=== PATIENT | female | born 1930 | race Caucasian/White ===

== ENCOUNTER 2017-08-27 19:13 | Inpatient (IN) | payer OTHER ==
[~2017-08-27] VITALS: Ht 167.6 cm; Wt 70.0 kg
[~2017-08-27 19:13] MED LIST: ADULT LOW DOSE81 M1 PO; ATIVAN0.5 MG PO; CALCIUM 600 +1 EAC1; CALCIUM 600 +1 EAC1 PO; CITRACAL + D C1 EACH PO; DALMANE15 MG PO; LISINOPRIL5 MG PO; LO-DOSE ASPIRIN81 M1 PO; SIMVASTATIN10 MG PO; TYLENOL REGULA325 MG PO; VITAMIN D1000 INTUN PO
[2017-08-27 19:59] LABS: HEMATOCRIT 36.7 % (36.0-46.0); MCH 30.5 PG (29.0-34.0); MCHC 32.2 G/DL (30.0-36.0); MCV 94.8 FL (83-99); MEAN PLAT.VOLUME 9.3 uM^3 (9.5-12.4); PLATELET COUNT 231 K/uL (156-360); RBC DIS.WIDTH-CV 13.1 % (11.8-14.6); RBC DIS.WIDTH-SD 45.1 % (39-53); RED BLOOD COUNT 3.87 M/uL (3.80-5.20); WHITE BLOOD COUNT 11.4 K/uL (4.1-10.2)
[2017-08-27 20:06] LABS: PROTHROMBIN TIME 11.2 SEC (10.2-12.9)
[2017-08-27 20:07] LABS: CHLORIDE 107 mEq/L (99-109); POTASSIUM 4.3 mEq/L (3.7-5.4); SODIUM 144 mEq/L (136-147)
[2017-08-27 20:09] LABS: GLUCOSE 113 mg/dL (70-99); PTT 28.3 SEC (25-37)
[2017-08-27 20:10] LABS: ANION GAP 10 MEQ/L (2-14)
[2017-08-27 20:12] LABS: GFR ESTIMATE (CALCULATED) 50 mL/min/
[2017-08-27 20:13] LABS: UREA NITROGEN (BUN) 18 mg/dL (9-23)
[2017-08-27] MEDS ORDERED: DALMANE15 MG PO (21:44)
[2017-08-27] MEDS ORDERED: VITAMIN D31000 UNI2 PO (21:44)
[2017-08-27] MEDS ORDERED: ASCORBIC ACID500 M3 PO (21:47)
[2017-08-28 01:59] VITALS: BP 135/70
[2017-08-28 08:14] VITALS: BP 110/55
[2017-08-28 12:05] VITALS: BP 115/55
[2017-08-28 16:18] LABS: HEMATOCRIT 27.8 % (36.0-46.0); MCH 30.4 PG (29.0-34.0); MCHC 30.9 G/DL (30.0-36.0); MCV 98.2 FL (83-99); RBC DIS.WIDTH-CV 13.2 % (11.8-14.6); WHITE BLOOD COUNT 7.7 K/uL (4.1-10.2)
[2017-08-28 16:25] LABS: RED BLOOD COUNT 2.83 M/uL (3.80-5.20)
[2017-08-28 16:38] LABS: PLATELET CLUMPS PRESENT - PLATELET COUNT APPEARS ADQ.; PLATELET COUNT UNABLE TO REPORT K/uL (156-360)
[2017-08-28 19:16] VITALS: BP 120/56
[2017-08-29] VITALS (16 sets, daily range): BP systolic 97–148; BP diastolic 55–68
[2017-08-29 07:07] LABS: HEMATOCRIT 24.3 % (36.0-46.0); MCV 98.8 FL (83-99)
[2017-08-30 06:15] LABS: HEMATOCRIT 30.5 % (36.0-46.0)
[2017-08-30 08:14] VITALS: BP 120/58
[2017-08-30] MEDS ORDERED: HYDROCODON-ACE1 EAC7 PO (10:58)
[2017-08-30] MEDS ORDERED: LOVENOX40 MG/0.4 SC (10:58)
[2017-08-30 11:02] LABS: ANION GAP 4 MEQ/L (2-14); CHLORIDE 104 MEQ/L (99-109); GFR ESTIMATE (CALCULATED) > 59 mL/min/; GLUCOSE 109 mg/dL (70-99); POTASSIUM 3.9 MEQ/L (3.7-5.4); SAMPLE HEMOLYSIS CHECK 0; SAMPLE ICTERIC CHECK 0; SAMPLE LIPEMIA CHECK 0; SODIUM 137 MEQ/L (136-147); UREA NITROGEN (BUN) 14 mg/dL (9-23)
[2017-08-30 15:54] VITALS: BP 101/57
[2017-08-31] VITALS: BP 124/65
[2017-08-31 06:31] LABS: HEMATOCRIT 31.2 % (36.0-46.0); MCV 90.2 FL (83-99)
[2017-08-31 07:27] VITALS: BP 115/61
[2017-08-31 15:05] VITALS: BP 132/67
== END 2017-08-31 18:20 | DRG 481 ==
LOC: EME → EDBD 19:13 → EDOF 08-28 00:05 → 3EAST 08-28 00:05 → ENRESERV 08-28 00:36 → 3EAST 08-28 01:26
PROVIDERS: Emergency Medicine; Orthopaedic Surgery; Physician Assistant
PROC: 0QS636Z Reposition Right Upper Femur with Intramedullary Internal Fixation Device, Percutaneous Approach (ICD-10-PCS; principal; 2017-08-28)
PROC: 30233N1 Transfusion of Nonautologous Red Blood Cells into Peripheral Vein, Percutaneous Approach (ICD-10-PCS; 2017-08-29)
DX: S72.141A Displaced intertrochanteric fracture of right femur, initial encounter for closed fracture (principal); D62 Acute posthemorrhagic anemia; I10 Essential (primary) hypertension; E78.00 Pure hypercholesterolemia, unspecified; F41.9 Anxiety disorder, unspecified; W01.0XXA Fall on same level from slipping, tripping and stumbling without subsequent striking against object, initial encounter; Y92.009 Unspecified place in unspecified non-institutional (private) residence as the place of occurrence of the external cause; Z87.891 Personal history of nicotine dependence; Z85.828 Personal history of other malignant neoplasm of skin; Z88.0 Allergy status to penicillin
CPT/HCPCS: 71010; 73501; 73502; 73552; 73560; 76000; 80048; 85014; 85018; 85027; 85610; 85730; 86850; 86900; 86901; 86920; 93005; 94799; 99281; 99285; C1713; J0690; J1170; J1650; J1940; J2270; J2405; J3010; J7040; J7050; P9016

== ENCOUNTER 2017-09-26 05:45 | Emergency (ER) | payer OTHER ==
[~2017-09-26] VITALS: Ht 165.1 cm; Wt 59.5 kg
[~2017-09-26 05:45] MED LIST changes: +ASCORBIC ACID500 M3 PO; +HYDROCODON-ACE1 EAC7 PO; +LOVENOX40 MG/0.4 SC; +VITAMIN D31000 UNI2 PO
[2017-09-26 06:27] LABS: BASOPHIL COUNT 0.1 K/uL (0-0.1); EOSINOPHIL (%) 0.6 % (0-5); HEMATOCRIT 35.1 % (36.0-46.0); IMMATURE GRANULOCYTE (%) 0.3 % (0.0-0.7); INSTRUMENT ABS NEUTROPHIL CT 4.4 K/uL; LYMPHOCYTE COUNT 1.7 K/uL (1.0-2.8); MCH 30.4 PG (29.0-34.0); MCHC 31.9 G/DL (30.0-36.0); MCV 95.1 FL (83-99); MEAN PLAT.VOLUME 8.9 uM^3 (9.5-12.4); MONOCYTE COUNT 0.9 K/uL (0-0.8); NEUTROPHIL (%) 62.5 % (45-76); NEUTROPHIL COUNT 4.4 K/uL (1.8-6.4); PLATELET COUNT 346 K/uL (156-360); RBC DIS.WIDTH-CV 14.8 % (11.8-14.6); RED BLOOD COUNT 3.69 M/uL (3.80-5.20); WHITE BLOOD COUNT 7.1 K/uL (4.1-10.2)
[2017-09-26 06:32] LABS: CHLORIDE 105 mEq/L (99-109); POTASSIUM 3.7 mEq/L (3.7-5.4); SODIUM 138 mEq/L (136-147)
[2017-09-26 06:34] LABS: GLUCOSE 94 mg/dL (70-99)
[2017-09-26 06:36] LABS: ANION GAP 9 MEQ/L (2-14); TOTAL BILIRUBIN 0.4 mg/dL (0.0-1.0)
[2017-09-26 06:38] LABS: ALKALINE PHOSPHATASE 168 IU/L (3-129); GFR ESTIMATE (CALCULATED) 50 mL/min/
[2017-09-26 06:44] LABS: UREA NITROGEN (BUN) 27 mg/dL (9-23)
[2017-09-26 06:47] LABS: TROP-I INTERPRETATION NEGATIVE; TROPONIN-I 0.02 ng/mL (0.0-0.30)
[2017-09-26 07:00] LABS: LIPASE 14 U/L (1.0-51.0)
[2017-09-26 07:33] LABS: ADD MIUA? YES; BILIRUBIN NEGATIVE; BLOOD MODERATE; COLOR YELLOW ((YELLOW)); GLUCOSE (STRIP) NEGATIVE; KETONES NEGATIVE; LEUKOCYTES NEGATIVE; NITRITE NEGATIVE; PROTEIN (STRIP) NEGATIVE; SPECIFIC GRAVITY 1.011 (1.000-1.030); UROBILINOGEN 0.2 MG/DL (0.2-1.0)
[2017-09-26 07:49] LABS: BACTERIA RARE /HPF; EPITHELIAL CELLS RARE /HPF; HYALINE CASTS 0-5 /LPF; MUCUS NONE SEEN /LPF; UCUL ADDED? NO; WHITE BLOOD CELLS 0-5 /HPF (0-5)
[2017-09-26 10:37] LABS: TROP-I INTERPRETATION NEGATIVE; TROPONIN-I 0.02 ng/mL (0.0-0.30)
[2017-09-26 12:39] VITALS: BP 135/103
== END 2017-09-26 12:47 ==
LOC: EME 05:45
PROVIDERS: Emergency Medicine
DX: R10.13 Epigastric pain (principal); R11.2 Nausea with vomiting, unspecified; I10 Essential (primary) hypertension; E78.5 Hyperlipidemia, unspecified; I70.0 Atherosclerosis of aorta; I25.10 Atherosclerotic heart disease of native coronary artery without angina pectoris; J43.9 Emphysema, unspecified; I71.2 Thoracic aortic aneurysm, without rupture; F41.9 Anxiety disorder, unspecified; Z90.49 Acquired absence of other specified parts of digestive tract; Z88.0 Allergy status to penicillin; Z91.040 Latex allergy status
CPT/HCPCS: 71020; 71275; 74177; 80053; 81003; 83690; 84484; 85025; 93005; 99281; 99285; J2405; J7040

== ENCOUNTER 2017-10-03 04:36 | Emergency (ER) | payer OTHER ==
[~2017-10-03] VITALS: Ht 167.6 cm; Wt 59.3 kg
[2017-10-03 05:01] LABS: HEMATOCRIT 33.2 % (36.0-46.0); MCH 30.4 PG (29.0-34.0); MCHC 32.5 G/DL (30.0-36.0); MCV 93.5 FL (83-99); MEAN PLAT.VOLUME 9.2 uM^3 (9.5-12.4); PLATELET COUNT 320 K/uL (156-360); RBC DIS.WIDTH-CV 14.6 % (11.8-14.6); RBC DIS.WIDTH-SD 50.1 % (39-53); RED BLOOD COUNT 3.55 M/uL (3.80-5.20); WHITE BLOOD COUNT 7.9 K/uL (4.1-10.2)
[2017-10-03 05:27] LABS: TROP-I INTERPRETATION NEGATIVE; TROPONIN-I 0.02 ng/mL (0.0-0.30)
[2017-10-03 05:36] LABS: CHLORIDE 103 mEq/L (99-109); POTASSIUM 3.6 mEq/L (3.7-5.4); SODIUM 139 mEq/L (136-147)
[2017-10-03 05:38] LABS: GLUCOSE 96 mg/dL (70-99)
[2017-10-03 05:40] LABS: ANION GAP 11 MEQ/L (2-14); TOTAL BILIRUBIN 0.4 mg/dL (0.0-1.0)
[2017-10-03 05:42] LABS: ALKALINE PHOSPHATASE 136 IU/L (3-129); GFR ESTIMATE (CALCULATED) 50 mL/min/
[2017-10-03 05:43] LABS: UREA NITROGEN (BUN) 19 mg/dL (9-23)
[2017-10-03 05:45] LABS: LIPASE 17 U/L (1.0-51.0)
[2017-10-03 06:40] VITALS: BP 165/82
== END 2017-10-03 07:26 | disposition home or self-care (01) ==
LOC: EME 04:36
PROVIDERS: Emergency Medicine
DX: R10.13 Epigastric pain (principal); Z98.890 Other specified postprocedural states; I10 Essential (primary) hypertension; E78.5 Hyperlipidemia, unspecified; F41.9 Anxiety disorder, unspecified; Z91.040 Latex allergy status; Z88.0 Allergy status to penicillin
CPT/HCPCS: 80053; 83690; 84484; 85027; 93005; 99281; 99285; J7030

== ENCOUNTER 2017-11-11 21:54 | Inpatient (IN) | payer OTHER ==
[~2017-11-11] VITALS: Ht 165.1 cm; Wt 54.4 kg
[~2017-11-11 21:54] MED LIST changes: +ALEVE220 M2 PO
[2017-11-12] MEDS ORDERED: TYLENOL EXTRA500 MG PO (07:49)
[2017-11-12 07:51] VITALS: BP 150/73
[2017-11-12 14:20] LABS: HEMATOCRIT 30.1 % (36.0-46.0); HEMOGLOBIN 9.6 G/DL (11.9-15.5); MCH 31.3 PG (29.0-34.0); MCHC 31.9 G/DL (30.0-36.0); RBC DIS.WIDTH-CV 14.4 % (11.8-14.6); RBC DIS.WIDTH-SD 51.6 % (39-53); RED BLOOD COUNT 3.07 M/uL (3.80-5.20); WHITE BLOOD COUNT 10.3 K/uL (4.1-10.2)
[2017-11-12 14:45] LABS: PLATELET COUNT 218 K/uL (156-360)
[2017-11-12 14:58] VITALS: BP 95/55
[2017-11-12 20:08] VITALS: BP 98/55
[2017-11-13 00:20] VITALS: BP 100/58
[2017-11-13 04:30] VITALS: BP 104/60
[2017-11-13 07:17] LABS: CHLORIDE 102 MEQ/L (99-109); CREATININE 1.1 MG/DL (0.6-1.3); GFR ESTIMATE (CALCULATED) 50 mL/min/; GLUCOSE 133 mg/dL (70-99); POTASSIUM 4.2 MEQ/L (3.7-5.4); SODIUM 137 MEQ/L (136-147); UREA NITROGEN (BUN) 21 mg/dL (9-23)
[2017-11-13 08:00] VITALS: BP 118/58
[2017-11-13 10:48] LABS: HEMATOCRIT 27.6 % (36.0-46.0); HEMOGLOBIN 8.7 G/DL (11.9-15.5); MCV 98.9 FL (83-99)
[2017-11-13 11:43] VITALS: BP 102/57
[2017-11-13 16:04] VITALS: BP 118/63
[2017-11-13 19:59] VITALS: BP 108/59
[2017-11-14] VITALS (7 sets, daily range): BP systolic 100–137; BP diastolic 56–65
[2017-11-14 10:46] LABS: HEMATOCRIT 25.7 % (36.0-46.0); HEMOGLOBIN 8.1 G/DL (11.9-15.5); MCV 95.5 FL (83-99)
[2017-11-15] VITALS (7 sets, daily range): BP systolic 106–133; BP diastolic 58–84
[2017-11-15] MEDS ORDERED: LOVENOX40 MG/0.4 SC (08:40)
[2017-11-15] MEDS ORDERED: TYLENOL REGULA325 MG PO (08:40)
[2017-11-15] MEDS ORDERED: SENNA PLUS TAB1 EACH PO (08:40)
[2017-11-15 09:57] LABS: HEMATOCRIT 23.8 % (36.0-46.0); HEMOGLOBIN 7.5 G/DL (11.9-15.5); MCV 96.4 FL (83-99)
[2017-11-15 15:20] LABS: HEMATOCRIT 27.5 % (36.0-46.0); HEMOGLOBIN 9.2 G/DL (11.9-15.5); MCV 94.2 FL (83-99)
== END 2017-11-15 18:15 | DRG 470 ==
LOC: ENRESERV 21:54 → 3WEST 11-12 07:07 → 2SOUTH 11-12 07:07 → 3WEST 11-12 14:42 → 2SOUTH 11-12 15:10 → 3WEST 11-14 07:13 → ENRESERV 11-14 07:23 → 3EAST 11-14 18:07
PROVIDERS: Nurse Practitioner Family; Orthopaedic Surgery; Physician Assistant
PROC: 0SR90JZ Replacement of Right Hip Joint with Synthetic Substitute, Open Approach (ICD-10-PCS; principal; 2017-11-12)
PROC: 0QP604Z Removal of Internal Fixation Device from Right Upper Femur, Open Approach (ICD-10-PCS; principal; 2017-11-12)
PROC: 30233N1 Transfusion of Nonautologous Red Blood Cells into Peripheral Vein, Percutaneous Approach (ICD-10-PCS; 2017-11-15)
DX: T84.84XA Pain due to internal orthopedic prosthetic devices, implants and grafts, initial encounter (principal); T84.89XA Other specified complication of internal orthopedic prosthetic devices, implants and grafts, initial encounter; Y83.1 Surgical operation with implant of artificial internal device as the cause of abnormal reaction of the patient, or of later complication, without mention of misadventure at the time of the procedure; S72.141G Displaced intertrochanteric fracture of right femur, subsequent encounter for closed fracture with delayed healing; W19.XXXD Unspecified fall, subsequent encounter; D62 Acute posthemorrhagic anemia; E78.00 Pure hypercholesterolemia, unspecified; I10 Essential (primary) hypertension; Z90.710 Acquired absence of both cervix and uterus; Z66 Do not resuscitate; Z87.891 Personal history of nicotine dependence; Z68.1 Body mass index [BMI] 19.9 or less, adult
CPT/HCPCS: 36415; 71045; 73501; 73522; 73552; 80048; 85014; 85018; 85027; 86850; 86900; 86901; 86920; 97530 GP; C1713; C1769; C1776; J0131; J0690; J1170; J1650; J1885; J2250; J2405; J3010; J7030; J7050; J7120; P9016